=== PATIENT | male | born 1990 | race Caucasian/White ===

== ENCOUNTER 2019-07-08 01:13 | Emergency (ER) | payer MEDICAID ==
[~2019-07-08] VITALS: Ht 190.5 cm; Wt 95.0 kg
[2019-07-08] MEDS ORDERED: KETOROLAC 30MG/ML VIAL IM ONE (02:00)
[2019-07-08] MEDS ORDERED: MORPHINE SULFATE 10 MG/ML CPJ IM ONE (02:00)
[2019-07-08 07:00] VITALS: BP 129/61
== END 2019-07-08 07:34 | disposition home or self-care (01) ==
LOC: ER 01:13
DX: S43.101A Unspecified dislocation of right acromioclavicular joint, initial encounter (principal); V00.131A Fall from skateboard, initial encounter; Y93.51 Activity, roller skating (inline) and skateboarding; Y92.89 Other specified places as the place of occurrence of the external cause; Y99.8 Other external cause status
CPT/HCPCS: 73030; 96372; 99283; J1885; J2270

== ENCOUNTER 2019-07-19 09:22 | Emergency (ER) | payer MEDICAID ==
[~2019-07-19] VITALS: Ht 190.5 cm; Wt 82.0 kg
[2019-07-19] MEDS ORDERED: KETOROLAC 60MG/2ML VIAL IM ONE (11:00)
[2019-07-19 11:46] VITALS: BP 118/75
== END 2019-07-19 11:48 | disposition home or self-care (01) ==
LOC: ER 09:22
DX: S43.101A Unspecified dislocation of right acromioclavicular joint, initial encounter (principal); F17.210 Nicotine dependence, cigarettes, uncomplicated; X50.0XXA Overexertion from strenuous movement or load, initial encounter; Y93.89 Activity, other specified; Y92.520 Airport as the place of occurrence of the external cause
CPT/HCPCS: 96372; 99283; J1885

== ENCOUNTER 2019-07-30 15:45 | Emergency (ER) | payer MEDICAID | END 2019-07-30 19:27 | disposition left against medical advice (07) | LOC: ER 15:45 | DX: Z53.21 Procedure and treatment not carried out due to patient leaving prior to being seen by health care provider (principal) ==

== ENCOUNTER 2019-08-22 13:17 | Emergency (ER) | payer MEDICAID ==
[~2019-08-22] VITALS: Ht 190.5 cm; Wt 86.0 kg
[2019-08-22] MEDS ORDERED: HYDROCODONE/ACETAMINOPHEN 5/325MG TABLET PO ONE (15:15)
[2019-08-22 15:59] VITALS: BP 119/62
== END 2019-08-22 16:00 | disposition home or self-care (01) ==
LOC: ER 14:36
DX: G89.18 Other acute postprocedural pain (principal); M25.511 Pain in right shoulder
CPT/HCPCS: 99282

== ENCOUNTER 2020-07-12 02:22 | Emergency (ER) | payer MEDICAID ==
[~2020-07-12] VITALS: Ht 190.5 cm; Wt 88.0 kg
[2020-07-12] MEDS ORDERED: DEXAMETHASONE 4MG TABLET PO ONE (03:30)
[2020-07-12] MEDS ORDERED: AMOXICILLIN/POTASSIUM CLAVULANATE 875/125MG TAB PO ONE (03:30)
[2020-07-12 04:08] VITALS: BP 137/84
== END 2020-07-12 04:33 | disposition home or self-care (01) ==
LOC: ER 02:22
DX: J02.9 Acute pharyngitis, unspecified (principal)
CPT/HCPCS: 99283; J8540

== ENCOUNTER 2020-08-22 19:39 | Emergency (ER) | payer OTHER, MEDICAID ==
[~2020-08-22] VITALS: Ht 190.5 cm; Wt 87.0 kg
[2020-08-22 20:54] LABS: BASOPHILS % 0.7 % (0.0-2.0); EOSINOPHILS % 2.9 % (0.0-5.0); HEMATOCRIT. 39.3 % (42.0-52.0); HEMOGLOBIN. 13.6 g/dL (14.0-18.0); LYMPHOCYTES % 29.7 % (20.0-50.0); MEAN CORPUSCULAR HEMOGLOBIN 33.6 pg (28.0-32.0); MEAN CORPUSCULAR VOLUME 96.8 fL (80.0-94.0); MEAN PLATELET VOLUME 9.2 fl (7.4-10.4); MONOCYTES % 6.8 % (2.0-8.0); NEUTROPHILS % 59.9 % (40.0-76.0); PLATELET 225 x1000/uL (130-400); RED BLOOD CELL COUNT 4.06 mill/uL (4.7-6.1); RED CELL DISTRIBUTION WIDTH 12.6 % (11.6-14.6)
[2020-08-22 21:08] LABS: CHLORIDE 109 mEq/L (98-107)
[2020-08-23 01:10] VITALS: BP 124/70
== END 2020-08-23 02:00 | disposition home or self-care (01) ==
LOC: ER 19:39
DX: K62.5 Hemorrhage of anus and rectum (principal); R94.31 Abnormal electrocardiogram [ECG] [EKG]
CPT/HCPCS: 36415; 80053; 82270; 85025; 93005; 99284; Z7610